=== PATIENT | female | born 1980 | race American Indian/Alaskan Native ===

== ENCOUNTER 2020-05-08 12:42 | Outpatient (CLI) | payer BC | END 2020-05-08 12:43 | disposition home or self-care (01) | LOC: LAB 12:42 | PROVIDERS: ATTEND Specialist | DX: G65.1 Sequelae of other inflammatory polyneuropathy (principal) | CPT/HCPCS: 36415; 82306; 82607; 83036; 83921; 84443; 85652; 86038; 86225; 86592 ==